=== PATIENT | female | born 1945 | race Caucasian/White ===

== ENCOUNTER 2018-09-05 02:04 | Inpatient (IN) ==
[2018-09-05] MEDS ORDERED: Naloxone 0.4 MG/ML INJ IVP PRN (03:02)
[2018-09-05] MEDS ORDERED: Ondansetron 4 MG/2 ML VIAL IVP PRN (03:02)
[2018-09-05] MEDS ORDERED: 0.9 % Sodium Chloride 1,000 ML IVC SCH (03:15)
--- NOTE | 2018-09-05 04:20 | Internal Med History&Physical ---
Date of Encounter: 09/05/18 Time of Encounter: 04:07 Internal Medicine - H&P: HPI Chief complaint: Abdominal pain nausea and vomiting History of present illness: Ms. Dozier is a 72 year old female with a past medical history of rheumatoid arthritis, exploratory laparoscopy, appendectomy and transurethral resection of a bladder tumor in 2013 who presented initially to [facility] due to unremitting abdominal pain, nausea, vomiting and diarrhea. Symptoms began yesterday morning. Patient states she had her cup of coffee and a cookie and a brownie after which she began experiencing abdominal pain predominantly left sided followed by numerous episodes of nonbloody nonbilious emesis and diarrhea. Patient reports initial diarrhea was dark in appearance. No reports of amy blood. Pain was constant and difficult to describe, aggravated with any movement associated bloating. Her symptoms persisted throughout the evening and she reports she did not get much sleep. She woke up this morning and took a bath and debated whether to come into the hospital or not. Eventually her friend convinced her to come in for further evaluation. Patient reports she has had 2 episodes previous to this that were similar and had always attributed it to her gallbladder. Patient's had her tubes tied and her appendix removed she states in the 80s. Patient has a [id number] smoking history. Family history of prostate cancer in her father and diabetes in her mother. No reports of chest pain, fever or chills. She does report some shortness of breath. On initial assessment at [facility] patient was found to be afebrile, hemodynamically stable Past Med Surg Social Fam HX - Past Medical History Medical history: RA Additional medical history: cataracts, Psychiatric history: anxiety - Past Surgical History Surgical History: appendectomy Additional surgical history: exp lap, tubal - Social History Smoking Status: Current every day smoker Packs per day: 1/2 Smokeless Tobacco Status: No Alcohol use: none Drug use: none Internal Medicine - H&P: Meds Folic Acid 2 mg PO DAILY 04/21/15 [History] Albuterol Sulfate [Albuterol Inhaler] 2 puff IH Q4HR PRN #1 [email or web address] 04/09/17 [Rx] Methotrexate [Otrexup] 12.5 mg PO KNOTT 04/09/17 [History] hydrOXYzine pamoate [HydrOXYzine Pamoate] 25 mg PO HS 04/09/17 [History] Aspirin [Lo-Dose Aspirin EC] 81 mg PO DAILY 09/04/18 [History] Allergy/AdvReac Type Severity Reaction Status Date / Time No Known Allergies Allergy Verified 09/04/18 21:30 All Systems PM: A 10-system review of systems was performed and is negative for pertinent findings except as documented above in the HPI. - Constitutional Constitutional: no chills, no fever(s), no night sweats - EENT Eyes: no change in vision, no discharge, no pain, no photophobia Ears: no ear discharge, no ear pain, no tinnitus Nose, mouth and throat: no dysphagia, no nasal discharge, no neck pain, no sore throat - Cardiovascular Cardiovascular ROS IM: no chest pain, no diaphoresis, no dyspnea, no lightheadedness, no palpitations, no syncope - Respiratory Respiratory: no cough, no dyspnea, no wheezing, no excessive phlegm production - Gastrointestinal Gastrointestinal: no abdominal pain, no diarrhea, no hematemesis, no hematochezia, no melena, no nausea, no vomiting - Genitourinary Genitourinary: no change in urinary stream, no dysuria, no flank pain, no hematuria - Musculoskeletal Musculoskeletal ROS IM: no numbness, no tingling - Integumentary Integumentary IM: no rash, no unusual bruising - Neurological Neurological ROS: no confusion, no convulsions, no focal weakness, no numbness, no tingling, no tremor(s) - Hematologic/Lymphatic Hematologic/Lymphatic: no easy bruising - Constitutional Vitals: Temp Pulse Resp BP Pulse Ox 98.4 F 98 16 102/57 91 09/05/18 03:22 09/05/18 03:22 09/05/18 03:22 09/05/18 03:22 09/05/18 03:22 Exam: General: Alert and oriented 3 lying in bed in no acute distress Skin:Normal color, no rash, no lesions. HEENT:EOM, pupils equal, round and reactive. Cardiovascular:Normal S1 & S2, no rubs, murmurs or gallops. No JVD. Pulse regular. Lungs:Normal breath sounds, no wheezes or crackles. Abdomen:Soft, mild tenderness to palpation in the left lower quadrant. Hyp oactive bowel sounds. NG tube in place Extremities:No deformity, no edema or tenderness, no joint swelling or clubbing. Neurological:Normal cognition and motor skills. Pulses:Carotid and radial pulses normal +2. Rest of the physical exam is non contributory Internal Med - H&P Results - Labs CBC & Chem 7: 09/05/18 06:37 09/05/18 06:37 - Impressions ITS Impressions KUB X-Ray 09/05/18 02:28 IMPRESSION: Enteric tube tip and side port in the stomach. D/ / Benny Sessions / Benny Sessions Interpreting Provider: Benny Sessions - Assessment and Plan (1) Small bowel obstruction Current Visit: Yes Status: Acute Assessment and plan: Patient presenting with acute onset abdominal pain, nausea, vomiting and diarrhea. CT scan of the abdomen showing evidence of small bowel obstruction with dilated loop of small bowel with fecal eyes did not with abdominal contents within the lower abdomen/pelvis. No transition point identified. This may be due to adhesions versus internal hernia. Risk factors for abdominal adhesions include exploratory laparoscopy, transurethral resection of bladder tumor 2013, appendectomy and history of tubal ligation. Laboratory workup unremarkable including a potassium and magnesium level above 4 and 2 respectively. NG tube placed at [facility]. -Continue fluid support -We will place NG tube to suction -Pain control as needed -Surgery consulted (2) COPD (chronic obstructive pulmonary disease) Current Visit: Yes Status: Acute Qualifiers: COPD type: emphysema Emphysema type: unspecified Qualified Code(s): J43.9 - Emphysema, unspecified (3) Rheumatoid arthritis Current Visit: Yes Status: Acute Assessment and plan: History of rheumatoid arthritis currently on methotrexate. Qualifiers: Laterality: unspecified laterality Qualified Code(s): M06.9 - Rheumatoid arthritis, unspecified (4) Nausea vomiting and diarrhea Current Visit: Yes Status: Acute Assessment and plan: Patient reporting initial episode of diarrhea described as dark black in appearance. No reports of bright red blood per rectum. Hemoglobin 14.3. -We will check stool for occult blood. -Continue fluids and antiemetics -Monitor for signs of bleed. (5) DVT prophylaxis Current Visit: Yes Status: Acute Assessment and plan: Subcutaneous heparin - Time Spent With Patient Total time spent is greater than 50% in coordination of care (as documented) at patient's floor/unit and/or counseling patient:
--- NOTE | 2018-09-05 05:55 | AcuteCare Surgery Consult Note ---
Date of Encounter: 09/05/18 Time of Encounter: 05:00 Assessment and Plan (1) Small bowel obstruction Current Visit: No Status: Acute Partial SBO vs enteritis. IVF. NPO. NGT. After adequate bowel rest will advance diet. Most likely pt will not require surgical intervention for her condition. History of Present Illness Reason for consult: abdominal pain Requesting physician: Polo Castillo History of present illness: This y/o pt presents to [facility] ED c/o severe abdominal pain that started immediately after eating a cookie. Pt reports pain is diffuse. Pain doesn;t radiate. It is new in onset. Pt reports pain has been present since yesterday morning. Now, the pain is constant and severe. Pt reports nausea and vomiting and diarrhea. Pt denies hematemesis or coffee ground emesis. Pt reports flatus and BM. BM have become loose today. Pt denies hematochezia or melena. Reports decreased appetite. Denies fever. Past Med Surg Social Fam HX - Past Medical History Medical history: RA Additional medical history: cataracts, Psychiatric history: anxiety - Past Surgical History Surgical History: appendectomy Additional surgical history: exp lap, tubal - Social History Smoking Status: Current every day smoker Packs per day: 1/2 Smokeless Tobacco Status: No Alcohol use: none Drug use: none Medications and Allergies Folic Acid 2 mg PO DAILY 04/21/15 [History] Albuterol Sulfate [Albuterol Inhaler] 2 puff IH Q4HR PRN #1 [email or web address] 04/09/17 [Rx] Methotrexate [Otrexup] 5 mg PO QWEEK 04/09/17 [History] hydrOXYzine pamoate [HydrOXYzine Pamoate] 25 mg PO HS 04/09/17 [History] Aspirin [Lo-Dose Aspirin EC] 81 mg PO DAILY 09/04/18 [History] Allergy/AdvReac Type Severity Reaction Status Date / Time No Known Allergies Allergy Verified 09/04/18 21:30 Review of Systems All systems PM: The remainder of the systems were reviewed and are negative - Constitutional as per HPI, no anorexia, no chills, no excessive sweating, no fatigue, no fever(s), no night sweats, no weakness - EENT Nose, mouth and throat: no dizziness, no dry mouth, no dysphagia, no nasal congestion, no nasal discharge, no sinus pain, no sinus pressure, no sore throat - Cardiovascular no chest pain, no dyspnea, no dyspnea on exertion, no edema - Respiratory no cough, no dyspnea, no wheezing - Gastrointestinal abdominal pain, belching, bloating, diarrhea, nausea, vomiting, no constipation, no hematemesis, no hematochezia, no melena - Genitourinary Genitourinary: no dysuria, no flank pain, no urinary frequency - Musculoskeletal no back pain, no joint swelling, no limited range of motion, no neck pain - Integumentary no dry skin, no pruritus, no rash, no wounds, no jaundice - Neurological no confusion, no dizziness, no focal weakness, no weakness - Psychiatric no anxiety, no depression - Hematologic/Lymphatic no easy bleeding, no easy bruising General Surgery Exam Initial Vital Signs Temp Pulse Resp BP Pulse Ox 98.4 F 98 16 102/57 91 09/05/18 03:22 09/05/18 03:09/05/18 03:09/05/18 03:09/05/18 03:22 - General physical appearance no distress, moderate pain (controlled). negative: jaundice - Eyes PERRL, normal ocular movement. negative: icteric - ENT no congestion, dry mucosa. negative: nasal discharge - Neck no lymphadectomy, no venous distension - Respiratory normal respiratory effort, clear to auscultation - Abdomen Abdomen general surgery: Present: bowel sounds present (hypoactive), soft, tender Abdominal Tenderness: Present: diffusely - Genitourinary Present: normal external genitalia - Integumentary Integumentary general surgery: Present: warm and dry - Neurologic Present: CN 2-12 grossly intact, normal coordination - Musculoskeletal Present: normal posture - Psychiatric Psychiatric general surgery: Present: A&Ox3, appropriate Exam Initial Vital Signs Temp Pulse Resp BP Pulse Ox 98.4 F 98 16 102/57 91 09/05/18 03:22 09/05/18 03:22 09/05/18 03:09/05/18 03:09/05/18 03:22 Results - Labs All other labs normal. - Imaging CT scan - abdomen: report reviewed (dilated SB and gallstones), image reviewed CT scan - pelvis: report reviewed (dilated SB and gallstones), image reviewed
[2018-09-05] MEDS ORDERED: *HR* Heparin 5,000 UNIT/ML VIAL SQ SCH (06:00)
[2018-09-05] MEDS ORDERED: Pantoprazole 40 MG VIAL IVP SCH (06:56)
[2018-09-05 07:26] LABS: INR 1.2; Prothrombin Time 13.2 Seconds (9.4-12.1)
[2018-09-05 07:29] LABS: Activated Partial Thrombo Time 34.4 Seconds (26.0-36.0)
[2018-09-05 07:31] LABS: Alanine Aminotransferase 8 Units/L (7-52); Albumin 3.6 g/dL (3.5-5.7); Albumin/Globulin Ratio 1.7 (1.1-2.2); Alkaline Phosphatase 37 Units/L (34-104); Aspartate Amino Transferase 15 Units/L (13-39); BUN/Creatinine Ratio 25 (6-26); Bilirubin,Total 0.6 mg/dL (0.3-1.0); Blood Urea Nitrogen 14 mg/dL (8-23); Calcium 8.1 mg/dL (8.6-10.3); Carbon Dioxide 25 mEq/L (23-29); Chloride 109 mEq/L (98-107); Globulin 2.1 g/dL (2.4-3.5); Glucose 97 mg/dL (70-105); Magnesium 1.9 mg/dL (1.6-2.6); Osmolality,Calculated 292 (280-300); Potassium 3.8 mEq/L (3.5-5.1); Sodium 141 mEq/L (136-145); Total Protein 5.7 g/dL (6.4-8.9); eGFR For African Americans > 60 (> 60); eGFR For Non-African Americans > 60 (> 60)
[2018-09-05 07:34] LABS: Basophils % 0.3 %; Eosinophils % 0.4 %; Hematocrit 33.6 % (35.3-44.9); Hemoglobin 11.2 g/dL (11.5-15.4); Immature Granulocytes % 0.5 % (0-4); Immature Platelets 2.3 % (1.1-6.1); Lymphocytes # 2.2 K/mcL (0.6-4.6); Lymphocytes % 27.3 %; Mean Corpuscular HGB Conc 33.3 g/dL (31.6-35.5); Mean Corpuscular Hemoglobin 31.9 pg (28.0-33.3); Mean Corpuscular Volume 95.7 fL (83.0-100.0); Mean Platelet Volume 9.8 fL (9.4-12.4); Monocytes # 0.6 K/mcL (0.0-1.3); Monocytes % 7.3 %; Neutrophils # 5.1 K/mcL (1.6-8.9); Platelet Count 202 K/mcL (140-400); Red Blood Count 3.51 M/mcL (3.82-4.97); Red Cell Distribution Width 14.1 % (11.5-14.5); Segmented Neutrophils % 64.2 %; White Blood Count 7.9 K/mcL (4.3-11.1)
[2018-09-05] MEDS ORDERED: Ketorolac 30 MG/ML VIAL IVP PRN (08:25)
[2018-09-05] MEDS: Pantoprazole 40 MG VIAL IVP SCH (09:48)
--- NOTE | 2018-09-05 09:48 | AcuteCareSurgery Progress Note ---
<Brittni Mejia - Last Filed: 09/05/18 09:57> Date of Encounter: 09/05/18 Time of Encounter: 09:47 - Assessment and Plan (1) Small bowel obstruction Current Visit: Yes Status: Acute Presented with abdominal pain, nausea, vomiting, diarrhea Partial small bowel obstruction versus gastroenteritis Abdominal surgeries-exploratory laparotomy, appendectomy, tubal ligation CT scan from [facility]-evidence of small bowel obstruction with dilated loops of small bowel, no transition point. No leukocytosis, patient afebrile Passing flatus, loose bowel movements however remains nauseous Continue maintenance fluids Pain-Toradol Nausea-Zofran GI prophylaxis-protonix DVT prophylaxis-SCDs Continue NG tube to suction Continue nothing by mouth to continue bowel rest Possible small bowel follow-through today (2) Nausea vomiting and diarrhea Current Visit: Yes Status: Acute Suspect secondary to partial small bowel obstruction versus gastroenteritis Nothing by mouth Zofran for nausea (3) DVT prophylaxis Current Visit: Yes Status: Acute SCDs as fecal occult blood test pending. Subjective Narrative: Patient seen and examined at bedside today. She states that her abdominal pain has resolved. She still feels intermittently nauseous. She is passing loose bowel movements and flatus. She denies nausea, vomiting, fever, chills, chest pain, shortness breath, abdominal pain, dysuria, hematuria, calf pain. Objective Vital Signs - Last 8 Hours Temp Pulse Resp BP Pulse Ox 09/05/18 08:10 99.0 F 88 16 96/53 93 09/05/18 03:22 98.4 F 98 16 102/57 91 Intake and Output 09/04/18 09/05/18 09/05/18 23:59 07:59 15:59 Output Total 300 / 300 Balance -300 / -300 Output: Urine 200 / 200 Gastric Drainage 100 / 100 Other: Meal npo Stool Size Small Stool Consistency liquid Stool Color Brown # Voids 1 Weight 48.7 kg Patient Weight 09/05/18 23:59 Weight 48.7 kg - General physical appearance well developed, no distress, other (Frail) - Eyes PERRL, normal ocular movement - ENT normal mucosa, no congestion - Neck Neck exam: trachea midline, no venous distension - Respiratory normal expansion, normal respiratory effort, clear to auscultation - Cardiovascular Cardiovascular exam: Present: RRR, no murmurs/rubs/gallops - Abdomen Abdomen: Present: bowel sounds present, soft, non tender, distended (Mild). Absent: guarding, rebound - Integumentary no rash, no abnormal pigmentation - Neurologic CN 2-12 grossly intact, normal coordination, normal sensation - Musculoskeletal normal posture - Psychiatric oriented to time, oriented to person, oriented to place, speech is normal, memory intact - Labs 09/05/18 06:37 09/05/18 06:37 Diabetes panel 09/05/18 Range/Units 06:37 Sodium 141 (136-145) mEq/L Potassium 3.8 (3.5-5.1) mEq/L Chloride 109 H (98-107) mEq/L Carbon Dioxide 25 (23-29) mEq/L BUN 14 (8-23) mg/dL Creatinine 0.55 L (0.60-1.20) mg/dL Glucose 97 (70-105) mg/dL Calcium 8.1 L (8.6-10.3) mg/dL AST 15 (13-39) Units/L ALT 8 (7-52) Units/L Alkaline Phosphatase 37 (34-104) Units/L Albumin 3.6 (3.5-5.7) g/dL Calcium panel 09/05/18 Range/Units 06:37 Calcium 8.1 L (8.6-10.3) mg/dL Albumin 3.6 (3.5-5.7) g/dL Pituitary panel 09/05/18 Range/Units 06:37 Sodium 141 (136-145) mEq/L Potassium 3.8 (3.5-5.1) mEq/L Chloride 109 H (98-107) mEq/L Carbon Dioxide 25 (23-29) mEq/L BUN 14 (8-23) mg/dL Creatinine 0.55 L (0.60-1.20) mg/dL Glucose 97 (70-105) mg/dL Calcium 8.1 L (8.6-10.3) mg/dL Adrenal panel 09/05/18 Range/Units 06:37 Sodium 141 (136-145) mEq/L Potassium 3.8 (3.5-5.1) mEq/L Chloride 109 H (98-107) mEq/L Carbon Dioxide 25 (23-29) mEq/L BUN 14 (8-23) mg/dL Creatinine 0.55 L (0.60-1.20) mg/dL Glucose 97 (70-105) mg/dL Calcium 8.1 L (8.6-10.3) mg/dL Total Bilirubin 0.6 (0.3-1.0) mg/dL AST 15 (13-39) Units/L ALT 8 (7-52) Units/L Alkaline Phosphatase 37 (34-104) Units/L Albumin 3.6 (3.5-5.7) g/dL Consult Discharge Plan - Plan Referrals: NONE,PCP [Primary Care Provider] - <Wil Carmen - Last Filed: 09/05/18 12:28> Date of Encounter: 09/05/18 Objective Vital Signs - Last 8 Hours Temp Pulse Resp BP Pulse Ox 09/05/18 10:51 98.7 F 78 16 95/57 92 09/05/18 08:10 99.0 F 88 16 96/53 93 Intake and Output 09/04/18 09/05/18 09/05/18 23:59 07:59 15:59 Intake Total 500 / 500 Output Total 400 / 400 Balance 100 / 100 Intake: IV Fluids 500 / 500 0.9 % Sodium Chloride 1,000 ML 500 / 500 @ 75 mls/hr IVC .[id number] [facility] Rx #:[id number] Output: Urine 200 / 200 Gastric Tube Lavage Amount 100 / 100 Right Nare 100 / 100 Gastric Drainage 100 / 100 Other: Meal npo Stool Size Moderate Stool Consistency loose liquid Stool Color Brown # Voids 1 # Bowel Movements 1 Weight 48.7 kg Blood Glucose* 96 Patient Weight 09/05/18 23:59 Weight 48.7 kg - Labs 09/05/18 06:37 09/05/18 06:37 Diabetes panel 09/05/18 Range/Units 06:37 Sodium 141 (136-145) mEq/L Potassium 3.8 (3.5-5.1) mEq/L Chloride 109 H (98-107) mEq/L Carbon Dioxide 25 (23-29) mEq/L BUN 14 (8-23) mg/dL Creatinine 0.55 L (0.60-1.20) mg/dL Glucose 97 (70-105) mg/dL Calcium 8.1 L (8.6-10.3) mg/dL AST 15 (13-39) Units/L ALT 8 (7-52) Units/L Alkaline Phosphatase 37 (34-104) Units/L Albumin 3.6 (3.5-5.7) g/dL Calcium panel 09/05/18 Range/Units 06:37 Calcium 8.1 L (8.6-10.3) mg/dL Albumin 3.6 (3.5-5.7) g/dL Pituitary panel 09/05/18 Range/Units 06:37 Sodium 141 (136-145) mEq/L Potassium 3.8 (3.5-5.1) mEq/L Chloride 109 H (98-107) mEq/L Carbon Dioxide 25 (23-29) mEq/L BUN 14 (8-23) mg/dL Creatinine 0.55 L (0.60-1.20) mg/dL Glucose 97 (70-105) mg/dL Calcium 8.1 L (8.6-10.3) mg/dL Adrenal panel 09/05/18 Range/Units 06:37 Sodium 141 (136-145) mEq/L Potassium 3.8 (3.5-5.1) mEq/L Chloride 109 H (98-107) mEq/L Carbon Dioxide 25 (23-29) mEq/L BUN 14 (8-23) mg/dL Creatinine 0.55 L (0.60-1.20) mg/dL Glucose 97 (70-105) mg/dL Calcium 8.1 L (8.6-10.3) mg/dL Total Bilirubin 0.6 (0.3-1.0) mg/dL AST 15 (13-39) Units/L ALT 8 (7-52) Units/L Alkaline Phosphatase 37 (34-104) Units/L Albumin 3.6 (3.5-5.7) g/dL - Attending Attestation I examined this patient and my medical decision-making was reviewed with the [facility]. I agree with the documented findings, disposition and treatment plan as described except to the extent set forth below. The patient is seen and evaluated on morning rounds with the acute care surgery team. She appears to have partial small bowel obstruction. There is good deal of stool in the rectum. She has normal bowel sounds. We will plan nasogastric tube decompression today. She may require small bowel follow-through to assist with the differential diagnosis. Wil Carmen MD FACS
--- NOTE | 2018-09-05 11:29 | Event Note ---
Date of Encounter: 09/05/18 Time of Encounter: 08:45 H&P reviewed. Patient with history of rheumatoid arthritis and multiple abdominal surgeries was admitted overnight due to abdominal pain and was found to have SBO. States that she had BM this morning. Reports improvement in her symptoms after NGT. Appreciate surgery consult, NPO, NGT, IVF, and will continue to follow. Analgesics
[2018-09-05] MEDS ORDERED: Ringers Solution, Lactated 1,000 ML IVC SCH (11:30)
[2018-09-05] MEDS: Ketorolac 15 MG/ML VIAL IVP PRN (12:15)
[2018-09-05] MEDS: 0.9 % Sodium Chloride 1,000 ML IVC SCH (18:48)
[2018-09-06] MEDS ORDERED: Melatonin 3 MG TABLET PO PRN (00:58)
[2018-09-06 04:35] LABS: Hematocrit 31.4 % (35.3-44.9); Hemoglobin 10.2 g/dL (11.5-15.4); Mean Corpuscular HGB Conc 32.5 g/dL (31.6-35.5); Mean Corpuscular Volume 98.4 fL (83.0-100.0); Mean Platelet Volume 9.7 fL (9.4-12.4); Platelet Count 163 K/mcL (140-400); Red Blood Count 3.19 M/mcL (3.82-4.97); Red Cell Distribution Width 14.1 % (11.5-14.5)
[2018-09-06 04:56] LABS: BUN/Creatinine Ratio 29 (6-26); Blood Urea Nitrogen 15 mg/dL (8-23); Calcium 7.9 mg/dL (8.6-10.3); Carbon Dioxide 22 mEq/L (23-29); Chloride 113 mEq/L (98-107); Glucose 75 mg/dL (70-105); Osmolality,Calculated 292 (280-300); Potassium 3.4 mEq/L (3.5-5.1); Sodium 141 mEq/L (136-145); eGFR For African Americans > 60 (> 60); eGFR For Non-African Americans > 60 (> 60)
[2018-09-06] MEDS ORDERED: Potassium Chloride 40 MEQ, Lidocaine 1% 2 ML in D5% in Water 500 ML IVPB ONE (07:27)
[2018-09-06] MEDS: 0.9 % Sodium Chloride 1,000 ML IVC SCH ×2 (08:31→20:36)
[2018-09-06] MEDS: Pantoprazole 40 MG VIAL IVP SCH (08:31)
[2018-09-06] MEDS: Ketorolac 15 MG/ML VIAL IVP PRN (08:51)
--- NOTE | 2018-09-06 11:06 | Internal Med Progress Note ---
Hospitalist Progress Note - Encounter Date of Encounter: 09/06/18 Time of Encounter: 09:00 - Subjective Interval History: Reports improvement in her abdominal pain and nausea/vomiting. No cough, sputum production, or dysuria. NGT was removed yesterday afternoon due to minimal output. She also had 2 BMs yesterday. - Exam Vitals: Temp Pulse Resp BP Pulse Ox 98.2 F 75 16 93/55 93 09/06/18 07:00 09/06/18 07:00 09/06/18 07:00 09/06/18 07:00 09/06/18 07:00 Exam: General: Alert and oriented 3, not in acute distress Cardiovascular:Normal S1 & S2, no rubs, murmurs or gallops. No JVD. Pulse regular. Lungs:Normal breath sounds, no wheezes or crackles. Abdomen:Soft, minimally distended but nontender to palpation. bowel sounds active Extremities:No deformity, no edema or tenderness, no joint swelling or clubbing. Neurological: non-focal - Assessment and Plan (1) Small bowel obstruction Current Visit: Yes Status: Suspected Assessment and Plan: Pt with history of abdominal surgeries presented with acute onset of abdominal pain associated with nausea/vomiting. CT scan done at the outside hospital showed small bowel obstruction without transition point started on IVF, NGT suction which was discontinued yesterday due to minimal output. Reports clinical improvement and pt is having BM ?ileus appreciate surgery input, will advance diet today and monitor If patient is able to take well by mouth, DC IV fluid (2) Rheumatoid arthritis Current Visit: Yes Status: Chronic (3) DVT prophylaxis Current Visit: Yes Status: Acute Assessment and Plan: EPCD - Time Spent with Patient Total time spent is greater than 50% in coordination of care (as documented) at patient's floor/unit and/or counseling patient: 25 - 35 minutes (discussed with surgery in detail) Plan of Care Discussed with: patient Internal Medicine: Result - Labs CBC & Chem 7: 09/06/18 03:31 09/06/18 03:31 Labs: Short CBC 09/06/18 Range/Units 03:31 WBC 5.0 (4.3-11.1) K/mcL Hgb 10.2 L (11.5-15.4) g/dL Hct 31.4 L (35.3-44.9) % Plt Count 163 (140-400) K/mcL [facility] 09/06/18 03:31 Sodium 141 Potassium 3.4 L Chloride 113 H Carbon Dioxide 22 L BUN 15 Creatinine 0.51 L Glucose 75 Calcium 7.9 L - ABG Interpretation ABG results: PT/INR, D-dimer PT 13.2 Seconds (9.4-12.1) H 09/05/18 06:37 Consult Discharge Plan - Plan Referrals: Jeromy William, FAMILY PRACTICE PHYSICIAN [Non-Partnered Physician] - (2) Rheumatoid arthritis Qualifiers: Laterality: unspecified laterality Qualified Code(s): M06.9 - Rheumatoid arthritis, unspecified
--- NOTE | 2018-09-06 11:17 | AcuteCareSurgery Progress Note ---
<Brittni Mejia - Last Filed: 09/06/18 11:20> Date of Encounter: 09/06/18 Time of Encounter: 11:11 - Assessment and Plan (1) Small bowel obstruction Current Visit: Yes Status: Suspected Presented with abdominal pain, nausea, vomiting, diarrhea Partial small bowel obstruction versus gastroenteritis Abdominal surgeries-exploratory laparotomy, appendectomy, tubal ligation CT scan from [facility]-evidence of small bowel obstruction with dilated loops of small bowel, no transition point. NG tube removed yesterday, underwent Fleet enema Patient passing loose bowel movements Pain-Toradol Nausea-Zofran GI prophylaxis-protonix DVT prophylaxis-SCDs Patient to have one dose of magnesium citrate. As symptoms have resolved and patient continues to have bowel movements, acute care surgery to sign off. Please call or reconsult if you have any questions. (2) Nausea vomiting and diarrhea Current Visit: Yes Status: Acute Resolved Suspect secondary to partial small bowel obstruction versus gastroenteritis Zofran for nausea (3) DVT prophylaxis Current Visit: Yes Status: Acute SCDs as fecal occult blood test pending. Subjective Narrative: Patient seen and examined at bedside today. Her abdominal pain, nausea and vomiting have resolved. She had several loose bowel movements overnight. Her NG tube yesterday had minimal output and was discontinued. She underwent Fleet enema. She denies fever, chills, chest pain, shortness of breath, dysuria, constipation, calf pain. Objective Vital Signs - Last 8 Hours Temp Pulse Resp BP Pulse Ox 09/06/18 07:00 98.2 F 75 16 93/55 93 Intake and Output 09/05/18 09/06/18 09/06/18 23:59 07:59 15:59 Intake Total 118 / 618 0 / 1240 1240 / 1240 Output Total 0 / 440 Balance 118 / 178 0 / 1240 1240 / 1240 Intake: IV Fluids 1000 / 1000 0.9 % Sodium Chloride 1,000 ML 1000 / 1000 @ 75 mls/hr IVC .[id number] [facility] Rx #:[id number] Oral 118 / 118 0 / 240 240 / 240 Output: Urine 0 / 200 Gastric Tube Lavage Amount 0 / 140 Right Nare 0 / 140 Other: Meal NPO Breakfast Percent of Meal Consumed 45% Stool Size Small Stool Consistency loose liquid Stool Color Brown # Bowel Movement Diapers 1 Weight 47.8 kg Blood Glucose* 95 Patient Weight 09/06/18 23:59 Weight 47.8 kg - General physical appearance well developed, well nourished, no distress - Eyes PERRL, normal ocular movement - ENT normal mucosa, no congestion - Neck Neck exam: trachea midline, no venous distension - Respiratory normal expansion, normal respiratory effort, clear to auscultation - Cardiovascular Cardiovascular exam: Present: RRR, no murmurs/rubs/gallops. Absent: JVD - Abdomen Abdomen: Present: bowel sounds present, soft, non tender. Absent: distended, guarding, rebound - Integumentary no rash, no abnormal pigmentation - Neurologic normal coordination, normal sensation - Musculoskeletal normal posture - Psychiatric oriented to time, oriented to person, oriented to place, speech is normal, memory intact - Labs 09/06/18 03:31 09/06/18 03:31 Diabetes panel 09/06/18 Range/Units 03:31 Sodium 141 (136-145) mEq/L Potassium 3.4 L (3.5-5.1) mEq/L Chloride 113 H (98-107) mEq/L Carbon Dioxide 22 L (23-29) mEq/L BUN 15 (8-23) mg/dL Creatinine 0.51 L (0.60-1.20) mg/dL Glucose 75 (70-105) mg/dL Calcium 7.9 L (8.6-10.3) mg/dL Calcium panel 09/06/18 Range/Units 03:31 Calcium 7.9 L (8.6-10.3) mg/dL Pituitary panel 09/06/18 Range/Units 03:31 Sodium 141 (136-145) mEq/L Potassium 3.4 L (3.5-5.1) mEq/L Chloride 113 H (98-107) mEq/L Carbon Dioxide 22 L (23-29) mEq/L BUN 15 (8-23) mg/dL Creatinine 0.51 L (0.60-1.20) mg/dL Glucose 75 (70-105) mg/dL Calcium 7.9 L (8.6-10.3) mg/dL Adrenal panel 09/06/18 Range/Units 03:31 Sodium 141 (136-145) mEq/L Potassium 3.4 L (3.5-5.1) mEq/L Chloride 113 H (98-107) mEq/L Carbon Dioxide 22 L (23-29) mEq/L BUN 15 (8-23) mg/dL Creatinine 0.51 L (0.60-1.20) mg/dL Glucose 75 (70-105) mg/dL Calcium 7.9 L (8.6-10.3) mg/dL Consult Discharge Plan - Plan Referrals: Jeromy William, [employer] [Non-Partnered Physician] - <Wil Carmen - Last Filed: 09/06/18 12:27> Date of Encounter: 09/06/18 Objective Vital Signs - Last 8 Hours Temp Pulse Resp BP Pulse Ox 09/06/18 11:08 98.0 F 65 16 95/58 96 09/06/18 07:00 98.2 F 75 16 93/55 93 Intake and Output 09/05/18 09/06/18 09/06/18 23:59 07:59 15:59 Intake Total 118 / 618 0 / 1240 1240 / 1240 Output Total 0 / 440 Balance 118 / 178 0 / 1240 1240 / 1240 Intake: IV Fluids 1000 / 1000 0.9 % Sodium Chloride 1,000 ML 1000 / 1000 @ 75 mls/hr IVC .[id number] [facility] Rx #:[id number] Oral 118 / 118 0 / 240 240 / 240 Output: Urine 0 / 200 Gastric Tube Lavage Amount 0 / 140 Right Nare 0 / 140 Other: Meal NPO Breakfast Percent of Meal Consumed 45% Stool Size Small Stool Consistency loose liquid Stool Color Brown # Bowel Movement Diapers 1 Weight 47.8 kg Blood Glucose* 95 Patient Weight 09/06/18 23:59 Weight 47.8 kg - Labs 09/06/18 03:31 09/06/18 03:31 Diabetes panel 09/06/18 Range/Units 03:31 Sodium 141 (136-145) mEq/L Potassium 3.4 L (3.5-5.1) mEq/L Chloride 113 H (98-107) mEq/L Carbon Dioxide 22 L (23-29) mEq/L BUN 15 (8-23) mg/dL Creatinine 0.51 L (0.60-1.20) mg/dL Glucose 75 (70-105) mg/dL Calcium 7.9 L (8.6-10.3) mg/dL Calcium panel 09/06/18 Range/Units 03:31 Calcium 7.9 L (8.6-10.3) mg/dL Pituitary panel 09/06/18 Range/Units 03:31 Sodium 141 (136-145) mEq/L Potassium 3.4 L (3.5-5.1) mEq/L Chloride 113 H (98-107) mEq/L Carbon Dioxide 22 L (23-29) mEq/L BUN 15 (8-23) mg/dL Creatinine 0.51 L (0.60-1.20) mg/dL Glucose 75 (70-105) mg/dL Calcium 7.9 L (8.6-10.3) mg/dL Adrenal panel 09/06/18 Range/Units 03:31 Sodium 141 (136-145) mEq/L Potassium 3.4 L (3.5-5.1) mEq/L Chloride 113 H (98-107) mEq/L Carbon Dioxide 22 L (23-29) mEq/L BUN 15 (8-23) mg/dL Creatinine 0.51 L (0.60-1.20) mg/dL Glucose 75 (70-105) mg/dL Calcium 7.9 L (8.6-10.3) mg/dL - Attending Attestation I examined this patient and my medical decision-making was reviewed with the Resident Physician. I agree with the documented findings, disposition and ming atment plan as described except to the extent set forth below. The patient is seen and evaluated on morning rounds with the acute care surgery team. The patient is pain-free today. She has no nausea or vomiting. She did have bowel movement. I recommended magnesium citrate. She does not appear to have bowel obstruction surgery will sign off. Wil Carmen MD FACS
[2018-09-06] MEDS ORDERED: traZODone 50 MG TABLET PO PRN (12:42)
[2018-09-06] MEDS ORDERED: hydrOXYzine pamoate 25 MG CAPSULE PO SCH (21:00)
[2018-09-06] MEDS ORDERED: NON-FORMULARY MEDICATION 1 EACH EACH (Hydroxyzine Hcl [Hydroxyzine Hcl] 25 MG) PO SCH (21:00)
[2018-09-07 04:28] LABS: Hematocrit 29.5 % (35.3-44.9); Hemoglobin 9.6 g/dL (11.5-15.4); Mean Corpuscular HGB Conc 32.5 g/dL (31.6-35.5); Mean Corpuscular Hemoglobin 31.6 pg (28.0-33.3); Mean Platelet Volume 9.7 fL (9.4-12.4); Platelet Count 162 K/mcL (140-400); Red Blood Count 3.04 M/mcL (3.82-4.97); Red Cell Distribution Width 14.2 % (11.5-14.5); White Blood Count 4.6 K/mcL (4.3-11.1)
[2018-09-07 04:47] LABS: BUN/Creatinine Ratio 24 (6-26); Blood Urea Nitrogen 14 mg/dL (8-23); Calcium 8.1 mg/dL (8.6-10.3); Carbon Dioxide 24 mEq/L (23-29); Chloride 114 mEq/L (98-107); Glucose 90 mg/dL (70-105); Osmolality,Calculated 292 (280-300); Potassium 3.9 mEq/L (3.5-5.1); Sodium 141 mEq/L (136-145); eGFR For African Americans > 60 (> 60); eGFR For Non-African Americans > 60 (> 60)
[2018-09-07 06:41] VITALS: BP 142/63
[2018-09-07] MEDS ORDERED: Aspirin Enteric Coated 81 MG Tablet PO SCH (09:00)
[2018-09-07] MEDS ORDERED: Folic Acid 1 MG TABLET PO SCH (09:00)
--- NOTE | 2018-09-07 09:37 | Discharge Summary ---
- NOTES TO OUTPATIENT PROVIDER Notes to Outpatient Provider: Follow with surgery when necessary Date of Encounter: 09/07/18 Time of Encounter: 07:15 - Discharge Diagnosis (1) Small bowel obstruction Priority: Primary Status: Suspected (2) Rheumatoid arthritis Priority: Secondary Status: Chronic Qualifiers: Laterality: unspecified laterality Qualified Code(s): M06.9 - Rheumatoid arthritis, unspecified (3) DVT prophylaxis Priority: Secondary Status: Acute Hospital course: Ms. Dozier is a 72 year old female with history of rheumatoid arthritis and multiple abdominal surgeries who was admitted due to abdominal pain and was found to have SBO on CT. Clinically improved with IVF, brief period of NGT, and bowel regimen. She had multiple BMs during her stay with symptomatic im provement. Managed in consultation with surgery and NGT was removed on 09/05 followed by successful advancement of diet. She will be discharged in stable condition on 09/07 with PRN surgery follow up. Discharge discussed with: patient, nurse - Time Spent with Patient Total time spent providing and/or coordinating discharge services: 32 mins - Discharge Medications Prescriptions: Continued Folic Acid 2 mg PO DAILY Cholecalciferol (Vitamin D3) [Dialyvite Vitamin D] 5,000 units PO QAM Escitalopram [Lexapro] 20 mg PO DAILY hydrOXYzine HCl [Hydroxyzine HCl] 25 mg PO HS Multivit-Min/FA/Lycopen/Lutein [Centrum Silver Tablet] 1 tab PO DAILY Trazodone HCl 50 mg PO HS PRN PRN Reason: Sleep Vitamin E 400 mg PO QAM Methotrexate [Otrexup] 12.5 mg PO KNOTT Albuterol Sulfate [Albuterol Inhaler] 2 puff IH Q4HR PRN #1 [email or web address] PRN Reason: Shortness Of Breath Aspirin [Lo-Dose Aspirin EC] 81 mg PO DAILY Home Medications: Folic Acid 2 mg PO DAILY 04/21/15 [History] Albuterol Sulfate [Albuterol Inhaler] 2 puff IH Q4HR PRN #1 [email or web address] 04/09/17 [Rx] Methotrexate [Otrexup] 12.5 mg PO KNOTT 04/09/17 [History] Aspirin [Lo-Dose Aspirin EC] 81 mg PO DAILY 09/04/18 [History] Cholecalciferol (Vitamin D3) [Dialyvite Vitamin D] 5,000 units PO QAM 09/06/18 [History] Escitalopram [Lexapro] 20 mg PO DAILY 09/06/18 [History] Multivit-Min/FA/Lycopen/Lutein [Centrum Silver Tablet] 1 tab PO DAILY 09/06/18 [History] Trazodone HCl 50 mg PO HS PRN 09/06/18 [History] Vitamin E 400 mg PO QAM 09/06/18 [History] hydrOXYzine HCl [Hydroxyzine HCl] 25 mg PO HS 09/06/18 [History] Allergies/Adverse Reactions: Allergy/AdvReac Type Severity Reaction Status Date / Time No Known Allergies Allergy Verified 09/04/18 21:30 Date of admission: 09/06/18 14:15 Primary care physician: PCP NONE - Constitutional Vitals: Temp Pulse Resp BP Pulse Ox 98.5 F 78 14 142/63 97 09/07/18 06:41 09/07/18 06:41 09/07/18 06:41 09/07/18 06:41 09/07/18 06:41 Exam: General: Alert and oriented 3, not in acute distress Cardiovascular:Normal S1 & S2, no rubs, murmurs or gallops. No JVD. Pulse regular. Lungs:Normal breath sounds, no wheezes or crackles. Abdomen:Soft, nontender. bowel sounds active Extremities:No deformity, no edema or tenderness, no joint swelling or clubbing. Neurological: non-focal - Patient Status Disposition: Home, Self-Care Condition: Fair Functional capacity at discharge: independent ambulation Overall status at discharge: patient is progressing back to baseline - Discharge Instructions Instructions: Chronic Obstructive Pulmonary Disease (DC) Follow Up With: Jeromy William CNP [Non-Partnered Physician] - Gilberto David MD [Non-Partnered Physician] - - Diet and Activity Activity: resume usual activities as tolerated Diet: advance to your usual diet
[2018-09-07] MEDS: Pantoprazole 40 MG VIAL IVP SCH (09:44)
== END 2018-09-07 12:30 | disposition home or self-care (01) | DRG 390 ==
LOC: 3ANU → SUATTDRO 02:04
PROVIDERS: ADMIT Internal Medicine; ATTEND Internal Medicine

== ENCOUNTER 2021-02-03 10:11 | Inpatient (IN) ==
[2021-02-03] MEDS ORDERED: Ondansetron 4 MG/2 ML VIAL IVP PRN (11:58)
[2021-02-03] MEDS ORDERED: Acetaminophen 325 MG TABLET PO PRN (11:58)
[2021-02-03 13:22] LABS: Eosinophils # 0.1 K/mcL (0.0-0.6); Eosinophils % 1.9 %; Hematocrit 30.3 % (35.3-44.9); Hemoglobin 9.8 g/dL (11.5-15.4); Immature Granulocytes % 0.2 % (0-4); Lymphocytes # 1.3 K/mcL (0.6-4.6); Mean Corpuscular HGB Conc 32.3 g/dL (31.6-35.5); Mean Corpuscular Hemoglobin 32.2 pg (28.0-33.3); Mean Corpuscular Volume 99.7 fL (83.0-100.0); Mean Platelet Volume 9.6 fL (9.4-12.4); Monocytes # 0.4 K/mcL (0.0-1.3); Monocytes % 10.4 %; Neutrophils # 2.3 K/mcL (1.6-8.9); Platelet Count 220 K/mcL (140-400); Red Blood Count 3.04 M/mcL (3.82-4.97); Red Cell Distribution Width 14.5 % (11.5-14.5); Segmented Neutrophils % 55.5 %; White Blood Count 4.1 K/mcL (4.3-11.1)
[2021-02-03 13:31] LABS: INR 1.9; Prothrombin Time 20.6 Seconds (9.4-12.1)
[2021-02-03 13:33] LABS: Activated Partial Thrombo Time 33.9 Seconds (26.0-36.0)
[2021-02-03 14:04] LABS: BUN/Creatinine Ratio 23 (6-26); Blood Urea Nitrogen 15 mg/dL (8-23); Calcium 9.5 mg/dL (8.6-10.3); Carbon Dioxide 27 mEq/L (23-29); Chloride 107 mEq/L (98-107); Glucose 72 mg/dL (70-105); Osmolality,Calculated 291 (280-300); Potassium 3.7 mEq/L (3.5-5.1); Sodium 141 mEq/L (136-145); eGFR For African Americans > 60 (> 60); eGFR For Non-African Americans > 60 (> 60)
[2021-02-03] MEDS: 0.9 % Sodium Chloride 1,000 ML IVC SCH (14:48)
[2021-02-03] MEDS ORDERED: *HR* Heparin 5,000 UNIT/ML VIAL IVP PRN ×2 (15:22)
[2021-02-03] MEDS ORDERED: Heparin 25,000UNIT/250ML 1/2NS 25,000 UNIT/250 ML IV.SOLN IVC SCH (15:30)
[2021-02-03 18:26] LABS: Hematocrit 29.2 % (35.3-44.9); Hemoglobin 9.4 g/dL (11.5-15.4); Mean Corpuscular HGB Conc 32.2 g/dL (31.6-35.5); Mean Corpuscular Hemoglobin 32.2 pg (28.0-33.3); Mean Platelet Volume 10.1 fL (9.4-12.4); Platelet Count 221 K/mcL (140-400); Red Blood Count 2.92 M/mcL (3.82-4.97); Red Cell Distribution Width 14.4 % (11.5-14.5); White Blood Count 4.7 K/mcL (4.3-11.1)
[2021-02-03 18:31] LABS: Heparin anti-factor XA UFH < 0.04 IU/mL (0.30-0.70)
[2021-02-03 18:32] LABS: INR 1.8; Prothrombin Time 20.3 Seconds (9.4-12.1)
[2021-02-03] MEDS ORDERED: Melatonin 3 MG TABLET PO ONE (22:51)
[2021-02-04 03:26] LABS: INR 1.7; Prothrombin Time 19.3 Seconds (9.4-12.1)
[2021-02-04] MEDS: 0.9 % Sodium Chloride 1,000 ML IVC SCH (06:50)
[2021-02-04] MEDS ORDERED: Ringers Solution, Lactated 1,000 ML IVC ONE (07:18)
[2021-02-04] MEDS ORDERED: Ondansetron 4 MG/2 ML VIAL ONE (07:45)
[2021-02-04] MEDS ORDERED: *HR* Phytonadione 10 MG/ML AMPUL SQ ONE (07:45)
[2021-02-04] MEDS ORDERED: Lidocaine -MPF 2% 5 ML VIAL ONE (07:45)
[2021-02-04] MEDS ORDERED: *HR* FentaNYL (PF) 100 MCG/2 ML VIAL ONE (07:46)
[2021-02-04] MEDS ORDERED: *HR* Propofol 200 MG/20 ML VIAL IVP ONE (07:46)
[2021-02-04] MEDS ORDERED: *HR* Phytonadione 10 MG/ML AMPUL IVPB ONE (07:51)
[2021-02-04] MEDS ORDERED: cefTRIAXone 1,000 MG in Water for inj. (sterile) 10 ML IVP ONE (08:20)
[2021-02-04 09:05] LABS: INR 1.5; Prothrombin Time 17.2 Seconds (9.4-12.1)
[2021-02-04] MEDS ORDERED: Isovue-300 50ML VIAL ONE (09:12)
[2021-02-04] MEDS ORDERED: EPHEDrine 50 MG/ML VIAL ONE (10:05)
[2021-02-04] MEDS ORDERED: *HR* HYDROcodone/Acet 5/325 mg TABLET PO PRN (11:58)
[2021-02-04] MEDS ORDERED: *HR* OxyCODONE Immed Rel 5 MG TABLET PO PRN (11:58)
[2021-02-04] MEDS ORDERED: *HR* Heparin 5,000 UNIT/ML VIAL IVP PRN ×2 (11:58)
[2021-02-04] MEDS ORDERED: Ondansetron 4 MG/2 ML VIAL IVP PRN (11:58)
[2021-02-04] MEDS ORDERED: Naloxone 0.4 MG/ML INJ IVP PRN (11:58)
[2021-02-04] MEDS ORDERED: Heparin 25,000UNIT/250ML 1/2NS 25,000 UNIT/250 ML IV.SOLN IVC SCH ×2 (12:30→16:00)
[2021-02-04] MEDS ORDERED: Ipratropium/Albuterol Neb 3 ML IH PRN (15:29)
[2021-02-04] MEDS ORDERED: Iron Sucrose Complex 250 MG in 0.9 % Sodium Chloride 250 ML IVPB ONE (15:33)
[2021-02-04] MEDS ORDERED: Cyanocobalamin (B-12) 1,000 MCG/ML VIAL SQ ONE (15:33)
[2021-02-04] MEDS ORDERED: Albumin 25% 25gram/100mL 25 GM/100 ML IV.SOLN IVPB ONE (22:48)
[2021-02-05] MEDS: 0.9 % Sodium Chloride 1,000 ML IVC SCH ×3 (02:41→16:35)
[2021-02-05 03:37] LABS: Basophils % 0.2 %; Eosinophils % 0.2 %; Hematocrit 22.5 % (35.3-44.9); Immature Granulocytes % 0.7 % (0-4); Lymphocytes % 16.7 %; Mean Corpuscular HGB Conc 31.1 g/dL (31.6-35.5); Mean Corpuscular Hemoglobin 31.7 pg (28.0-33.3); Mean Corpuscular Volume 101.8 fL (83.0-100.0); Mean Platelet Volume 10.1 fL (9.4-12.4); Monocytes # 0.5 K/mcL (0.0-1.3); Neutrophils # 4.4 K/mcL (1.6-8.9); Platelet Count 152 K/mcL (140-400); Red Blood Count 2.21 M/mcL (3.82-4.97); Red Cell Distribution Width 14.5 % (11.5-14.5); Segmented Neutrophils % 74.2 %
[2021-02-05 03:52] LABS: Alanine Aminotransferase 9 Units/L (7-52); Albumin 3.3 g/dL (3.5-5.7); Albumin/Globulin Ratio 2.2 (1.1-2.2); Alkaline Phosphatase 21 Units/L (34-104); Aspartate Amino Transferase 12 Units/L (13-39); BUN/Creatinine Ratio 19 (6-26); Bilirubin,Direct 0.1 mg/dL (0.0-0.2); Bilirubin,Indirect 0.2 mg/dL (0.0-1.0); Bilirubin,Total 0.3 mg/dL (0.3-1.0); Blood Urea Nitrogen 13 mg/dL (8-23); Carbon Dioxide 26 mEq/L (23-29); Chloride 113 mEq/L (98-107); Globulin 1.5 g/dL (2.4-3.5); Glucose 105 mg/dL (70-105); Magnesium 1.6 mg/dL (1.6-2.6); Osmolality,Calculated 296 (280-300); Potassium 4.3 mEq/L (3.5-5.1); Sodium 143 mEq/L (136-145); Total Protein 4.8 g/dL (6.4-8.9); eGFR For African Americans > 60 (> 60); eGFR For Non-African Americans > 60 (> 60)
[2021-02-05] MEDS: Acetaminophen 325 MG TABLET PO PRN ×2 (04:05→14:01)
[2021-02-05] MEDS ORDERED: *HR* Belladonna Alkaloids/Opium 30 MG RECTAL SUPPOSITORY RC PRN (08:14)
[2021-02-05 09:15] LABS: Hematocrit 23.9 % (35.3-44.9); Hemoglobin 7.6 g/dL (11.5-15.4)
[2021-02-05] MEDS: Nicotine 21 MG PATCH.TD24 TD SCH (11:01)
[2021-02-05] MEDS ORDERED: Perflutren Lipid Microsphere 1.3 ML in 0.9 % Sodium Chloride 8.7 ML IVP PRN (11:05)
[2021-02-05] MEDS ORDERED: Cyanocobalamin (B-12) 1,000 MCG/ML VIAL SQ ONE (16:48)
[2021-02-05] MEDS ORDERED: Iron Sucrose Complex 200 MG in 0.9 % Sodium Chloride 100 ML IVPB ONE (16:48)
[2021-02-06] MEDS: Acetaminophen 325 MG TABLET PO PRN (02:15)
[2021-02-06 03:44] LABS: Basophils % 0.4 %; Eosinophils # 0.1 K/mcL (0.0-0.6); Eosinophils % 2.1 %; Hematocrit 24.8 % (35.3-44.9); Immature Granulocytes % 0.4 % (0-4); Lymphocytes # 1.5 K/mcL (0.6-4.6); Lymphocytes % 22.2 %; Mean Corpuscular HGB Conc 32.3 g/dL (31.6-35.5); Mean Corpuscular Hemoglobin 32.9 pg (28.0-33.3); Mean Corpuscular Volume 102.1 fL (83.0-100.0); Monocytes # 0.6 K/mcL (0.0-1.3); Monocytes % 8.7 %; Neutrophils # 4.4 K/mcL (1.6-8.9); Platelet Count 176 K/mcL (140-400); Red Blood Count 2.43 M/mcL (3.82-4.97); Segmented Neutrophils % 66.2 %; White Blood Count 6.7 K/mcL (4.3-11.1)
[2021-02-06 04:02] LABS: BUN/Creatinine Ratio 18 (6-26); Blood Urea Nitrogen 11 mg/dL (8-23); Calcium 8.5 mg/dL (8.6-10.3); Carbon Dioxide 26 mEq/L (23-29); Chloride 116 mEq/L (98-107); Glucose 88 mg/dL (70-105); Magnesium 1.6 mg/dL (1.6-2.6); Osmolality,Calculated 301 (280-300); Potassium 3.7 mEq/L (3.5-5.1); Sodium 146 mEq/L (136-145); eGFR For African Americans > 60 (> 60); eGFR For Non-African Americans > 60 (> 60)
[2021-02-06] MEDS: 0.9 % Sodium Chloride 1,000 ML IVC SCH (06:14)
[2021-02-06] MEDS: Nicotine 21 MG PATCH.TD24 TD SCH (07:41)
[2021-02-06] MEDS ORDERED: *HR* Enoxaparin 60 MG/0.6 ML SYRINGE SQ SCH (10:00)
[2021-02-06] MEDS ORDERED: Perflutren Lipid Microsphere 1.3 ML in 0.9 % Sodium Chloride 8.7 ML IVP PRN (10:02)
[2021-02-06] MEDS ORDERED: *HR* LORazepam 2 MG/ML VIAL IVP ONE (10:24)
[2021-02-06] MEDS ORDERED: methylPREDNISolone 125 MG/2 ML VIAL IVP ONE (11:00)
[2021-02-06] MEDS ORDERED: *HR* Metoprolol 5 MG/5 ML VIAL IVP ONE (14:07)
[2021-02-06] MEDS ORDERED: Temazepam 15 MG CAPSULE PO SCH (21:00)
[2021-02-07 06:05] LABS: Basophils % 0.4 %; Eosinophils % 0.5 %; Hematocrit 26.4 % (35.3-44.9); Hemoglobin 8.6 g/dL (11.5-15.4); Immature Granulocytes % 0.3 % (0-4); Lymphocytes # 1.8 K/mcL (0.6-4.6); Lymphocytes % 23.8 %; Mean Corpuscular HGB Conc 32.6 g/dL (31.6-35.5); Mean Corpuscular Hemoglobin 33.2 pg (28.0-33.3); Mean Corpuscular Volume 101.9 fL (83.0-100.0); Mean Platelet Volume 10.3 fL (9.4-12.4); Monocytes # 0.7 K/mcL (0.0-1.3); Monocytes % 9.7 %; Platelet Count 216 K/mcL (140-400); Red Blood Count 2.59 M/mcL (3.82-4.97); Red Cell Distribution Width 15.3 % (11.5-14.5); Segmented Neutrophils % 65.3 %; White Blood Count 7.6 K/mcL (4.3-11.1)
[2021-02-07 06:15] LABS: INR 1.1
[2021-02-07 07:00] LABS: BUN/Creatinine Ratio 22 (6-26); Blood Urea Nitrogen 18 mg/dL (8-23); Calcium 9.4 mg/dL (8.6-10.3); Carbon Dioxide 27 mEq/L (23-29); Chloride 110 mEq/L (98-107); Glucose 91 mg/dL (70-105); Magnesium 1.7 mg/dL (1.6-2.6); Osmolality,Calculated 297 (280-300); Potassium 3.9 mEq/L (3.5-5.1); Sodium 143 mEq/L (136-145); eGFR For African Americans > 60 (> 60); eGFR For Non-African Americans > 60 (> 60)
[2021-02-07] MEDS ORDERED: Lidocaine Viscous Oral Soln 15 ML SOLUTION MM PRN (07:25)
[2021-02-07] MEDS ORDERED: 0.9 % Sodium Chloride 500 ML IVC ONE (07:26)
[2021-02-07] MEDS ORDERED: *HR* Midazolam HCl 5 MG/5 ML VIAL IVP ONE ×2 (07:46→07:47)
[2021-02-07] MEDS: *HR* FentaNYL (PF) 100 MCG/2 ML VIAL IVP PRN ×2 (07:55→08:00)
[2021-02-07] MEDS: *HR* Midazolam HCl 2 MG/2 ML VIAL IVP PRN ×2 (07:55→08:00)
[2021-02-07] MEDS: Nicotine 21 MG PATCH.TD24 TD SCH (08:57)
[2021-02-07] MEDS ORDERED: *HR* Enoxaparin 40 MG/0.4 ML SYRINGE SQ SCH (11:30)
[2021-02-07 11:35] VITALS: BP 119/63; PULSE 82; TEMP 98.2; O2SAT 95
[2021-02-07] MEDS ORDERED: Warfarin perPT PO SCH (18:00)
[2021-02-07] MEDS ORDERED: *HR* Warfarin 7.5 MG TABLET PO ONE (18:00)
== END 2021-02-07 17:08 | disposition home or self-care (01) | DRG 669 ==
LOC: 3ANU → SUATTDRO 11:40
PROVIDERS: ADMIT Urology; ATTEND Pharmacist

== ENCOUNTER 2021-07-17 15:59 | Inpatient (IN) ==
[2021-07-17] MEDS ORDERED: Isovue-370 500 ML BOTTLE IVP ONE (18:59)
[2021-07-17 19:07] LABS: Eosinophils % 0.3 %; Immature Granulocytes % 0.3 % (0-4)
[2021-07-17 19:09] LABS: Basophils # 0.1 K/mcL (0.0-0.2); Hematocrit 35.5 % (35.3-44.9); Hemoglobin 12.3 g/dL (11.5-15.4); Immature Platelets 5.5 % (1.1-6.1); Lymphocytes # 3.6 K/mcL (0.6-4.6); Mean Corpuscular HGB Conc 34.6 g/dL (31.6-35.5); Mean Corpuscular Hemoglobin 31.8 pg (28.0-33.3); Mean Corpuscular Volume 91.7 fL (83.0-100.0); Mean Platelet Volume 10.8 fL (9.4-12.4); Monocytes # 0.3 K/mcL (0.0-1.3); Monocytes % 4.8 %; Neutrophils # 2.2 K/mcL (1.6-8.9); Red Blood Count 3.87 M/mcL (3.82-4.97); Red Cell Distribution Width 14.3 % (11.5-14.5); Segmented Neutrophils % 35.6 %; White Blood Count 6.2 K/mcL (4.3-11.1)
[2021-07-17 19:14] LABS: INR 2.3
[2021-07-17 19:31] LABS: Alanine Aminotransferase 45 Units/L (7-52); Albumin 3.6 g/dL (3.5-5.7); Albumin/Globulin Ratio 1.2 (1.1-2.2); Alkaline Phosphatase 62 Units/L (34-104); Aspartate Amino Transferase 51 Units/L (13-39); BUN/Creatinine Ratio 31 (6-26); Bilirubin,Direct 0.1 mg/dL (0.0-0.2); Bilirubin,Indirect 0.4 mg/dL (0.0-1.0); Bilirubin,Total 0.5 mg/dL (0.3-1.0); Blood Urea Nitrogen 25 mg/dL (8-23); Calcium 8.8 mg/dL (8.6-10.3); Carbon Dioxide 25 mEq/L (23-29); Chloride 95 mEq/L (98-107); Globulin 2.9 g/dL (2.4-3.5); Glucose 84 mg/dL (70-105); Lipase 20 Units/L (11-82); Osmolality,Calculated 276 (280-300); Potassium 3.7 mEq/L (3.5-5.1); Sodium 131 mEq/L (136-145); Total Protein 6.5 g/dL (6.4-8.9); Troponin I < 0.03 ng/mL (< 0.04); eGFR For African Americans > 60 (> 60); eGFR For Non-African Americans > 60 (> 60)
[2021-07-17 19:44] LABS: Platelet Count 99 K/mcL (140-400)
[2021-07-17 19:45] LABS: Platelet Estimate Decreased (Normal); Smudge Cells Present (Not Present)
[2021-07-17 21:07] LABS: Bacteria,Urine Few per hpf (None-Few); Bilirubin,Urine Negative (Negative); Blood,Urine Small (Negative); Clarity,Urine Turbid (Clear); Color,Urine Yellow (Yellow); Glucose,Urine (UA) Normal (Normal); Ketones,Urine 40 mg/dL (Negative); Leukocyte Esterase,Urine Large (Negative); Mucus,Urine Few per lpf (None-Few); Nitrite,Urine Negative (Negative); Protein,Urine 200 mg/dL (Neg-Trace); RBC,Urine 30-50 per hpf (0-3); Renal Epithelial Cells,Urine Few per hpf (None-Few); Specific Gravity,Urine > 1.030 (1.010-1.025); Squamous Epithelial Cell,Urine Few per hpf (None-Few); Transitional Epi Cells,Urine Few per hpf (None-Few); Urobilinogen,Urine Normal (Normal); WBC,Urine TNTC per hpf (0-3)
[2021-07-17] MEDS ORDERED: cefTRIAXone 1,000 MG in 0.9 % Sodium Chloride Mini Bag 100 ML IVPB ONE (22:26)
[2021-07-17] MEDS ORDERED: Ondansetron 4 MG/2 ML VIAL IVP PRN (23:30)
[2021-07-17] MEDS ORDERED: *HR* Promethazine 25 MG/ML VIAL IM PRN (23:30)
[2021-07-17] MEDS ORDERED: Melatonin 3 MG TABLET PO PRN (23:30)
[2021-07-17] MEDS ORDERED: Naloxone 0.4 MG/ML INJ IVP PRN (23:30)
[2021-07-18] MEDS: Ringers Solution, Lactated 1,000 ML IVC SCH ×2 (01:13→08:35)
[2021-07-18] MEDS: Acetaminophen 325 MG TABLET PO PRN (01:18)
[2021-07-18 02:35] LABS: White Blood Count 5.9 K/mcL (4.3-11.1)
[2021-07-18 02:37] LABS: Basophils # 0.1 K/mcL (0.0-0.2); Basophils % 0.8 %; Eosinophils % 0.7 %; Immature Granulocytes % 0.3 % (0-4); Immature Platelets 7.4 % (1.1-6.1); Lymphocytes # 2.7 K/mcL (0.6-4.6); Lymphocytes % 45.8 %; Mean Corpuscular HGB Conc 34.3 g/dL (31.6-35.5); Mean Corpuscular Volume 93.3 fL (83.0-100.0); Mean Platelet Volume 11.3 fL (9.4-12.4); Monocytes # 0.6 K/mcL (0.0-1.3); Monocytes % 10.5 %; Neutrophils # 2.5 K/mcL (1.6-8.9); Platelet Count 104 K/mcL (140-400); Red Blood Count 3.75 M/mcL (3.82-4.97); Red Cell Distribution Width 14.3 % (11.5-14.5); Segmented Neutrophils % 41.9 %
[2021-07-18 02:56] LABS: BUN/Creatinine Ratio 33 (6-26); Blood Urea Nitrogen 25 mg/dL (8-23); Calcium 8.6 mg/dL (8.6-10.3); Carbon Dioxide 25 mEq/L (23-29); Chloride 96 mEq/L (98-107); Glucose 72 mg/dL (70-105); Magnesium 1.8 mg/dL (1.6-2.6); Osmolality,Calculated 277 (280-300); Potassium 3.6 mEq/L (3.5-5.1); Sodium 132 mEq/L (136-145); eGFR For African Americans > 60 (> 60); eGFR For Non-African Americans > 60 (> 60)
[2021-07-18 03:02] LABS: Platelet Estimate Decreased (Normal); Reactive Lymphocytes Present (Not Present)
[2021-07-18 03:49] LABS: INR 2.2; Prothrombin Time 24.1 Seconds (9.4-12.1)
[2021-07-18] MEDS: Pantoprazole 40 MG VIAL IVP SCH ×2 (05:32→16:54)
[2021-07-18] MEDS ORDERED: Ringers Solution, Lactated 500 ML IVC ONE (06:30)
[2021-07-18] MEDS: cefTRIAXone 1,000 MG in Water for inj. (sterile) 10 ML IVP SCH (08:36)
[2021-07-18] MEDS ORDERED: Perflutren Lipid Microsphere 1.3 ML in 0.9 % Sodium Chloride 8.7 ML IVP PRN (12:00)
[2021-07-18 13:26] LABS: INR 2.7; Prothrombin Time 30.2 Seconds (9.4-12.1)
[2021-07-18] MEDS ORDERED: *HR* Warfarin 5 MG TABLET PO ONE (18:00)
[2021-07-18] MEDS: Warfarin perPT PO SCH (18:50)
[2021-07-19] MEDS: Pantoprazole 40 MG VIAL IVP SCH (05:10)
[2021-07-19 06:23] LABS: Prothrombin Time 54.8 Seconds (9.4-12.1)
[2021-07-19] MEDS: cefTRIAXone 1,000 MG in Water for inj. (sterile) 10 ML IVP SCH (08:24)
[2021-07-19] MEDS: Cholecalciferol (D-3) 1,000 UNIT (25MCG) TABLET PO SCH (08:24)
[2021-07-19] MEDS: Folic Acid 1 MG TABLET PO SCH (08:24)
[2021-07-19 08:47] LABS: Hematocrit 35.8 % (35.3-44.9)
[2021-07-19] MEDS ORDERED: Sennosides/Docusate Sodium TABLET PO PRN (09:40)
[2021-07-19] MEDS ORDERED: *HR* Digoxin 0.5 MG/2 ML AMPUL IVP ONE (10:49)
[2021-07-19] MEDS: *HR* Digoxin 0.5 MG/2 ML AMPUL IVP SCH ×2 (15:27→21:32)
[2021-07-19] MEDS: Acetaminophen 325 MG TABLET PO PRN (15:28)
[2021-07-19] MEDS ORDERED: 0.9 % Sodium Chloride 1,000 ML IV ONE (15:43)
[2021-07-19] MEDS: Warfarin perPT PO SCH (18:44)
[2021-07-19] MEDS ORDERED: 0.9 % Sodium Chloride 500 ML IVC ONE (19:00)
[2021-07-20] MEDS: *HR* Digoxin 0.5 MG/2 ML AMPUL IVP SCH (04:10)
[2021-07-20 05:33] LABS: Hematocrit 29.6 % (35.3-44.9)
[2021-07-20 05:41] LABS: INR 3.4; Prothrombin Time 38.1 Seconds (9.4-12.1)
[2021-07-20 05:42] LABS: Hemoglobin 10.2 g/dL (11.5-15.4)
[2021-07-20 05:47] LABS: BUN/Creatinine Ratio 29 (6-26); Blood Urea Nitrogen 20 mg/dL (8-23); Carbon Dioxide 26 mEq/L (23-29); Chloride 105 mEq/L (98-107); Potassium 3.4 mEq/L (3.5-5.1); Sodium 137 mEq/L (136-145); eGFR For African Americans > 60 (> 60)
[2021-07-20 05:48] LABS: Glucose 117 mg/dL (70-105); Magnesium 1.7 mg/dL (1.6-2.6); Osmolality,Calculated 288 (280-300); Phosphorous 1.5 mg/dL (2.7-4.5); eGFR For Non-African Americans > 60 (> 60)
[2021-07-20] MEDS ORDERED: Potassium Phosphate 44 MEQ in 0.9 % Sodium Chloride 250 ML IVPB ONE (07:33)
[2021-07-20] MEDS: cefTRIAXone 1,000 MG in Water for inj. (sterile) 10 ML IVP SCH (08:54)
[2021-07-20] MEDS: Folic Acid 1 MG TABLET PO SCH (09:53)
[2021-07-20] MEDS: Cholecalciferol (D-3) 1,000 UNIT (25MCG) TABLET PO SCH (09:53)
[2021-07-20] MEDS: Warfarin perPT PO SCH (17:21)
[2021-07-20] MEDS ORDERED: *HR* Warfarin 3 MG TABLET PO ONE (18:00)
[2021-07-20 20:01] LABS: Adenovirus Not Detected (Not Detect); Bordetella Pertussis Not Detected (Not Detect); Coronavirus 229E Not Detected (Not Detect); Coronavirus HKU1 Not Detected (Not Detect); Coronavirus NL63 Not Detected (Not Detect); Coronavirus OC43 Not Detected (Not Detect); Human Metapneumovirus Not Detected (Not Detect); Human Rhinovirus/Enterovirus Not Detected (Not Detect); Influenza A Subtype 2009 H1 Not Detected (Not Detect); Influenza B Not Detected (Not Detect); Parainfluenza Virus 1 Not Detected (Not Detect); Parainfluenza Virus 2 Not Detected (Not Detect); Parainfluenza Virus 3 Not Detected (Not Detect); Parainfluenza Virus 4 Not Detected (Not Detect); Respiratory Syncytial Virus Not Detected (Not Detect); SARS-CoV-2 Not Detected (Not Detect)
[2021-07-20 20:02] LABS: Chlamydophila pneumoniae Not Detected (Not Detect); Mycoplasma pneumoniae Not Detected (Not Detect)
[2021-07-20] MEDS: Acetaminophen 325 MG TABLET PO PRN (20:26)
[2021-07-21] MEDS: cefTRIAXone 1,000 MG in Water for inj. (sterile) 10 ML IVP SCH (09:58)
[2021-07-21] MEDS: Cholecalciferol (D-3) 1,000 UNIT (25MCG) TABLET PO SCH (09:59)
[2021-07-21] MEDS: Folic Acid 1 MG TABLET PO SCH (09:59)
[2021-07-21 11:29] VITALS: BP 95/52; PULSE 90; TEMP 100.5; O2SAT 94
[2021-07-21 12:00] LABS: Hematocrit 28.8 % (35.3-44.9); Hemoglobin 9.7 g/dL (11.5-15.4); Mean Corpuscular HGB Conc 33.7 g/dL (31.6-35.5); Mean Corpuscular Hemoglobin 31.7 pg (28.0-33.3); Mean Corpuscular Volume 94.1 fL (83.0-100.0); Mean Platelet Volume 10.7 fL (9.4-12.4); Monocytes # 0.5 K/mcL (0.0-1.3); Platelet Count 142 K/mcL (140-400); Red Blood Count 3.06 M/mcL (3.82-4.97); Red Cell Distribution Width 14.7 % (11.5-14.5); White Blood Count 6.4 K/mcL (4.3-11.1)
[2021-07-21 12:17] LABS: INR 2.1; Prothrombin Time 22.9 Seconds (9.4-12.1)
[2021-07-21 12:22] LABS: BUN/Creatinine Ratio 29 (6-26); Blood Urea Nitrogen 15 mg/dL (8-23); Calcium 8.5 mg/dL (8.6-10.3); Carbon Dioxide 31 mEq/L (23-29); Chloride 103 mEq/L (98-107); Glucose 106 mg/dL (70-105); Osmolality,Calculated 285 (280-300); Potassium 3.8 mEq/L (3.5-5.1); Sodium 137 mEq/L (136-145); eGFR For African Americans > 60 (> 60); eGFR For Non-African Americans > 60 (> 60)
[2021-07-21 12:27] LABS: Lymphocytes # 3.1 K/mcL (0.6-4.6); Neutrophils # 2.8 K/mcL (1.6-8.9)
[2021-07-21] MEDS ORDERED: *HR* Warfarin 3 MG TABLET PO ONE (18:00)
== END 2021-07-21 17:08 | disposition home or self-care (01) | DRG 690 ==
LOC: 3ANU 15:59 → EMEROOARM 15:59 → SUATTDRO 22:43 → 3ANU 22:46
PROVIDERS: ADMIT Internal Medicine; ATTEND Internal Medicine

== ENCOUNTER 2022-01-01 06:36 | Observation (INO) ==
[2022-01-01] MEDS ORDERED: Ringers Solution, Lactated 1,000 ML IVC SCH (07:00)
[2022-01-01] MEDS ORDERED: *HR* FentaNYL (PF) 100 MCG/2 ML VIAL IVP PRN (07:23)
[2022-01-01] MEDS ORDERED: ACETAMINOPHEN 600 MG/60 ML IVPB PRN (07:23)
[2022-01-01] MEDS ORDERED: Ondansetron 4 MG/2 ML VIAL IVP PRN ×2 (07:23→11:17)
[2022-01-01] MEDS ORDERED: Albuterol 2.5 MG/3 ML NEBULIZER IH PRN (07:23)
[2022-01-01] MEDS ORDERED: *HR* HYDROmorphone PF 0.5 MG/0.5 ML SYRINGE IVP PRN (07:23)
[2022-01-01] MEDS ORDERED: *HR* Labetalol 20 MG/4 ML SYRINGE IVP PRN (07:23)
[2022-01-01] MEDS ORDERED: Ipratropium Neb 0.5 MG NEBULIZER IH PRN (07:23)
[2022-01-01] MEDS ORDERED: *HR* OxyCODONE Immed Rel 5 MG TABLET PO PRN (07:25)
[2022-01-01] MEDS ORDERED: cefOXitin 2,000 MG in 0.9 % Sodium Chloride Mini Bag 100 ML IVPB ONE (07:34)
[2022-01-01] MEDS ORDERED: Ondansetron 4 MG/2 ML VIAL ONE (07:36)
[2022-01-01] MEDS ORDERED: Lidocaine HCL 4 ML Topical Solution (Laryng-O-Jet Kit Sterile Pak) TP ONE ×2 (07:36→07:39)
[2022-01-01] MEDS ORDERED: *HR* Rocuronium Bromide 50 MG/5 ML VIAL ONE (07:36)
[2022-01-01] MEDS ORDERED: Lidocaine -MPF 2% 2 ML VIAL ONE (07:36)
[2022-01-01] MEDS ORDERED: *HR* FentaNYL (PF) 100 MCG/2 ML VIAL ONE (07:37)
[2022-01-01] MEDS ORDERED: *HR* Propofol 200 MG/20 ML VIAL IVP ONE (07:37)
[2022-01-01] MEDS ORDERED: CEFOXITIN IVP ONE (08:00)
[2022-01-01] MEDS ORDERED: SODIUM CHLORIDE 0.9% IVP ONE (08:00)
[2022-01-01] MEDS ORDERED: cefOXitin 2,000 MG in 0.9 % Sodium Chloride 20 ML IVP ONE (08:00)
[2022-01-01 08:08] LABS: INR 1.3; Prothrombin Time 14.1 Seconds (9.4-12.1)
[2022-01-01] MEDS ORDERED: Sugammadex Sodium 200 MG/2 ML VIAL IV ONE (09:59)
[2022-01-01] MEDS ORDERED: Naloxone 0.4 MG/ML INJ IVP PRN (11:17)
[2022-01-01] MEDS ORDERED: Acetaminophen 325 MG TABLET PO PRN (11:17)
[2022-01-01] MEDS ORDERED: *HR* Metoprolol 5 MG/5 ML VIAL IVP PRN (11:17)
[2022-01-01] MEDS ORDERED: 0.9 % Sodium Chloride 1,000 ML IVC ONE (20:50)
[2022-01-01] MEDS ORDERED: 0.9 % Sodium Chloride 1,000 ML IV ONE (21:53)
[2022-01-01] MEDS ORDERED: 0.9 % Sodium Chloride 1,000 ML IVC SCH (23:55)
[2022-01-02] MEDS ORDERED: 0.9 % Sodium Chloride 1,000 ML IVC SCH (00:15)
[2022-01-02 04:59] LABS: INR 1.2; Prothrombin Time 13.9 Seconds (9.4-12.1)
[2022-01-02] MEDS ORDERED: Cholecalciferol (D-3) 1,000 UNIT (25MCG) TABLET PO SCH (09:00)
[2022-01-02] MEDS ORDERED: *HR* Propofol 200 MG/20 ML VIAL IVP ONE (10:37)
[2022-01-02] MEDS ORDERED: *HR* FentaNYL (PF) 100 MCG/2 ML VIAL ONE (10:37)
[2022-01-02] MEDS ORDERED: Lidocaine -MPF 2% 2 ML VIAL ONE (12:32)
[2022-01-02] MEDS ORDERED: EPHEDrine sulfate 50 MG/10 ML VIAL IVP ONE (12:33)
[2022-01-02] MEDS ORDERED: ceFAZolin 2,000 MG in Water for inj. (sterile) 20 ML IVP ONE (12:35)
[2022-01-02] MEDS ORDERED: *HR* Rocuronium Bromide 50 MG/5 ML VIAL ONE (12:37)
[2022-01-02] MEDS ORDERED: Ondansetron 4 MG/2 ML VIAL ONE (12:37)
[2022-01-02] MEDS ORDERED: *HR* Succinylcholine 200 MG/10 ML VIAL IVP ONE (12:37)
[2022-01-02] MEDS ORDERED: *HR* Labetalol 20 MG/4 ML SYRINGE IVP ONE (13:00)
[2022-01-02] MEDS ORDERED: Sugammadex Sodium 200 MG/2 ML VIAL IV ONE (13:08)
[2022-01-02] MEDS ORDERED: *HR* Metoprolol 5 MG/5 ML VIAL IVP PRN (14:36)
[2022-01-02] MEDS ORDERED: Acetaminophen 325 MG TABLET PO PRN (14:36)
[2022-01-02] MEDS ORDERED: Ondansetron 4 MG/2 ML VIAL IVP PRN (14:36)
[2022-01-02 19:00] VITALS: BP 118/54; PULSE 73; TEMP 98.3; O2SAT 98
== END 2022-01-02 19:33 | disposition home or self-care (01) ==
LOC: 3ANU 06:36 → SAMDAY 06:36 → 3ANU 11:11
PROVIDERS: ADMIT Surgery; ATTEND Surgery